=== PATIENT | male | born 1935 | race Hispanic/Latino ===

== ENCOUNTER 2017-01-15 05:51 | Day surgery (SDC) | payer MEDICARE ==
[2017-01-15 06:57] LABS: Hemoglobin 13.7 gm/dl (11.8-15.2); Mean Corpuscular HGB Conc 33 % (32-34); Mean Corpuscular Hemoglobin 32 pg (28-32); Mean Corpuscular Volume 97 fl (84-94); Platelet Count 136 K/mm3 (140-440); Red Blood Count 4.23 M/mm3 (3.65-5.03); Red Cell Distribution Width 12.9 % (13.2-15.2); White Blood Count 5.7 K/mm3 (4.5-11.0)
[2017-01-15 07:08] LABS: INR 1.23 (0.87-1.13)
[2017-01-15 07:09] LABS: Anion Gap 18 mmol/L; BUN/Creatinine Ratio 16.66; Blood Urea Nitrogen 15 mg/dL (9-20); Calcium 9.3 mg/dL (8.4-10.2); Carbon Dioxide 25 mmol/L (22-30); Chloride 101.7 mmol/L (98-107); Glucose 93 mg/dL (75-100); Potassium 4.2 mmol/L (3.6-5.0); Sodium 140 mmol/L (137-145)
[2017-01-15] MEDS ORDERED: NACL 0.9% 500 ML 500 ML IV SCH (07:30)
[2017-01-15] MEDS ORDERED: VERSED ONE (08:03)
[2017-01-15] MEDS ORDERED: SUBLIMAZE ONE (08:03)
[2017-01-15] MEDS ORDERED: DIPRIVAN 10 MG/ML IV ONE (08:03)
[2017-01-15] MEDS ORDERED: AMIDATE IV ONE (08:03)
--- NOTE | 2017-01-15 08:05 | Anesthesia Day of Surgery ---
Anesthesia Day of Surgery - Day of Surgery Patient Examined: Yes Patient H&P Reviewed: Yes Patient is NPO: Yes Beta Blockers: Yes
--- NOTE | 2017-01-15 08:06 | Anesthesia Consultation ---
Anesthesia Consult and Med Hx Date of service: 01/15/17 - Airway Anesthetic Teeth Evaluation: Good, Partials ROM Head & Neck: Adequate Mental/Hyoid Distance: Adequate Mallampati Class: Class II Intubation Access Assessment: Probably Good - Pulmonary Exam CTA: Yes - Cardiac Exam Cardiac Exam: RRR (IRREGULAR) - Pre-Operative Health Status ASA Pre-Surgery Classification: ASA3 Proposed Anesthetic Plan: MAC - Pulmonary Hx Smoking: Yes (former) Hx Sleep Apnea: No - Cardiovascular System Hx Hypertension: Yes Hx Heart Attack/AMI: Yes (CABG 2011) Hx Percutaneous Transluminal Coronary Angioplasty (PTCA): Yes (2004 and 2011) Hx Cardia Arrhythmia: Yes (AFIB) - Central Nervous System Hx Seizures: No CVA: No Hx Psychiatric Problems: No - Other Systems Hx Cancer: No
[2017-01-15] MEDS ORDERED: HURRICAINE ONE 20% TOPICAL SPRAY MM NR (09:00)
--- NOTE | 2017-01-15 09:55 | Short Stay Summary ---
Short Stay Documentation Date of service: 01/15/17 - History H&P: obtained from office - Allergies and Medications Current Medications: Allergies No Known Allergies Allergy (Verified 01/15/17 06:37) Home Medications Medication Instructions Recorded Confirmed Last Taken Type Amiodarone [Cordarone 200 MG TAB] 200 mg PO DAILY 01/15/17 01/15/17 01/14/17 History 200mg Apixaban [Eliquis] 5 mg PO BID 01/15/17 01/15/17 01/15/17 History AtorvaSTATin [Lipitor] 20 mg PO QHS 01/15/17 01/15/17 01/14/17 History ISOSORBIDE MONOnitrate [Imdur ER] 30 mg PO QDAY 01/15/17 01/15/17 01/14/17 History Metoprolol Xl [Metoprolol 25 mg PO BID 01/15/17 01/15/17 01/15/17 History SUCCINATE ER TAB] Niacin [Niaspan ER] 1,000 mg PO QHS 01/15/17 01/15/17 01/14/17 History Nitroglycerin [Nitrostat] 0.4 mg SL Q5M PRN 01/15/17 01/15/17 Unknown History Ramipril [Ramipril] 2.5 mg PO QDAY 01/15/17 01/15/17 01/14/17 History Active Medications Benzocaine (Hurricaine One 20% Topical [place]) 3 spray MM PREOP NR Stop: 01/15/17 12:00 Last Admin: 01/15/17 08:43 Dose: 3 spray Sodium Chloride (Nacl 0.9% 500 Ml) 500 mls @ 50 mls/hr IV DIRECT SHELIA Last Admin: 01/15/17 07:28 Dose: 50 mls/hr - Physical exam General appearance: no acute distress Integumentary: no rash HEENT: Atraumatic Lungs: Clear to auscultation Breasts: deferred Heart: Other Gastrointestinal: normal Male Genitourinary: deferred Rectal Exam: deferred Extremities: no ischemia Neurological: Normal gait - Brief post op/procedure progress note Date of procedure: 01/15/17 Pre-op diagnosis: AFIB Post-op diagnosis: same Procedure: NATHANIEL guided CV Anesthesia: other Findings: See report Surgeon: HUDSON MURRIETA Estimated blood loss: none Pathology: none Condition: stable - Hospital course Hospital course: UNeventful - Disposition Condition at discharge: Good Disposition: DC-01 TO HOME OR SELFCARE Short Stay Discharge Plan Activity: advance as tolerated Weight Bearing Status: Weight Bear as Tolerated Diet: low fat, low cholesterol, low salt Follow up with: DAVID CRUZ MD [Primary Care Provider] - 7 Days Forms: NATHANIEL Discharge Form
[2017-01-15 11:03] VITALS: BP 104/68
--- NOTE | 2017-01-15 11:32 | Procedure Note ---
CARDIOVERSION REPORT ORDERING PHYSICIAN: Tiffanie Anne MD INDICATION FOR PROCEDURE: Persistent atrial fibrillation. DESCRIPTION OF PROCEDURE: After obtaining written consent and with the presence of anesthesia staff, the patient was deeply sedated with etomidate and propofol. A left atrial appendage thrombus was excluded with a transesophageal echocardiogram. A 200 joules synchronized shock was administered with successful cardioversion from atrial fibrillation into sinus rhythm. No complications occurred during the procedure. IMPRESSION: Successful cardioversion from atrial fibrillation into sinus rhythm after a 200 joules synchronized shock. RECOMMENDATION: Continue current management including amiodarone, Topral XL and Eliquis. JOB# [id number] PATTI/MATT
--- NOTE | 2017-01-15 13:37 | Post Anesthesia Evaluation ---
- Post Anesthesia Evaluation Patient Participated: Yes Airway Patent: Yes Stable Respiratory Function: Yes Nausea/Vomiting: No Temp > 96.8F: Yes Pain Manageable: Yes Adequeate Hydration: Yes Anesthesia Complications: No Block Receding Appropriately: Not Applicable Patient on Ventilator: No
== END 2017-01-15 11:30 | disposition home or self-care (01) ==
LOC: CATHLABREC 05:51 → EDSTATUS 07:30 → CATHLABREC 11:30
PROVIDERS: ATTEND Internal Medicine Cardiovascular Disease
DX: I48.1 Persistent atrial fibrillation (principal); I08.1 Rheumatic disorders of both mitral and tricuspid valves; I25.10 Atherosclerotic heart disease of native coronary artery without angina pectoris; E78.00 Pure hypercholesterolemia, unspecified; I10 Essential (primary) hypertension; Z79.899 Other long term (current) drug therapy; Z95.1 Presence of aortocoronary bypass graft; Z95.5 Presence of coronary angioplasty implant and graft; Z98.890 Other specified postprocedural states; Z87.891 Personal history of nicotine dependence
CPT/HCPCS: 80048; 85610; 85730; 92960; 93005; 93010; 93312; 93320; 93325; J2250; J2704; J3010; J7040